=== PATIENT | female | born 1930 | race Caucasian/White ===

== ENCOUNTER 2019-11-17 04:40 | Emergency (ER) | payer MEDICARE, OTHER ==
[~2019-11-17] VITALS: Ht 152.4 cm; Wt 60.0 kg
[2019-11-17 04:40] VITALS: BP 100/60
--- NOTE | 2019-11-17 05:09 | PHYS DOC ---
General Adult EDM: Chief Complaint: GI PROBLEM HPI: HPI: Patient is a 89 year old female is brought by EMS from a half-way with a chief complaint of rectal bleeding. Patient is a DNR CODE STATUS. Patient does not take any blood thinners except aspirin. EMS state that staff told him that they are not sure if patient was having vaginal bleeding or rectal bleeding. Patient has bowel and bladder incontinence and wears a diaper. Patient does have a history of Alzheimer's and dementia. Review of Systems: Review of Systems: Unable to perform review of systems secondary to patient mental status. Heart Score: Risk Factors: Risk Factors: DM, Current or recent (<one month) smoker, HTN, HLP, family history of CAD, obesity. Risk Scores: Score 0 - 3: 2.5% MACE over next 6 weeks - Discharge Home Score 4 - 6: 20.3% MACE over next 6 weeks - Admit for Clinical Observation Score 7 - 10: 72.7% MACE over next 6 weeks - Early Invasive Strategies Physical Exam: PE: Constitutional: Appears cachectic [] HENT: Normocephalic, atraumatic Eyes: EOMI Neck: Normal range of motion, Supple Cardiovascular: Tachycardia Lungs & Thorax: Bilateral rhonchi [] Abdomen: Bowel sounds normal, soft, no tenderness Rectal: Patient has black tarry stool Extremities: No tenderness, ROM intact Neurologic: Alert EKG: EKG: [] Radiology/Procedures: Radiology/Procedures: [] Course & Med Decision Making: Course & Med Decision Making Pertinent Labs and Imaging studies reviewed. (See chart for details) Ordered labs, Hemoccult stool On rectal exam patient does have black tarry stool Patient CARE turned over to Dr Lizarraga at shift change. Usama Disclaimer: Usama Disclaimer: This electronic medical record was generated, in whole or in part, using a voice recognition dictation system. Departure Departure Referrals: LAUREN NAVARRO (PCP) Justicifation of Admission Dx: Justifications for Admission: Justification of Admission Dx: SUSI Hernandez DO Nov 17, 2019 05:09
[2019-11-17 07:13] LABS: BASO % 0 % (0-3); EOS % 0 % (0-3); HEMATOCRIT 44.3 % (36.0-47.0); HEMOGLOBIN 14.6 g/dL (12.0-15.5); LYMPH # 2.2 x10^3/uL (1.0-4.8); LYMPH % 8 % (24-48); MEAN CORPUSCULAR HEMOGLOBIN 31 pg (25-35); MEAN CORPUSCULAR HGB CONC 33 g/dL (31-37); MEAN CORPUSCULAR VOLUME 93 fL (79-100); MONO # 0.7 x10^3/uL (0.0-1.1); MONO % 3 % (0-9); NEUT % 89 % (31-73); PLATELET COUNT 308 x10^3/uL (140-400); RED BLOOD COUNT 4.76 x10^6/uL (3.50-5.40); RED CELL DISTRIBUTION WIDTH 15.3 % (11.5-14.5)
[2019-11-17 07:21] LABS: ALBUMIN 3.2 g/dL (3.4-5.0); ALBUMIN/GLOBULIN RATIO 0.7 (1.0-1.7); CREATININE 4.6 mg/dL (0.6-1.0); TOTAL BILIRUBIN 0.4 mg/dL (0.2-1.0); TOTAL PROTEIN 7.9 g/dL (6.4-8.2)
[2019-11-17 07:25] LABS: CALCIUM 9.8 mg/dL (8.5-10.1)
[2019-11-17 07:28] LABS: FECAL OB PT POSITIVE (NEG)
[2019-11-17 07:33] LABS: POTASSIUM 6.1 mmol/L (3.5-5.1)
--- NOTE | 2019-11-17 07:55 | RAD ---
AP chest x-ray HISTORY: Altered mental status. COMPARISON: Chest x-ray January 01, 2013. FINDINGS: Heart size normal. Tortuosity/ectasia and calcified plaque thoracic aorta is stable to the prior study. Skinfold artifact right apex. Mild right suprahilar calcified granulomas and small left upper lobe calcified granuloma are stable. No pneumothorax, pulmonary opacities or pleural effusions. Bones are unremarkable. IMPRESSION: No acute process. Stable exam. Electronically signed by: Ramin Vargas MD (11/17/2019 7:52 AM) [id number]
[2019-11-17] MEDS ORDERED: IV NORMAL SALINE 1000ML BAG 1,000 ML IV ONE (08:00)
[2019-11-17 08:03] LABS: PROTHROMBIN TIME PATIENT 15.6 SEC (11.7-14.0)
[2019-11-17 09:32] LABS: % BANDS 2 % (0-9); % LYMPHS 27 % (24-48); % SEGS 71 % (35-66); PLT ESTIMATE ADEQUATE (ADEQUATE)
== END 2019-11-17 10:30 | disposition expired ==
LOC: ER 04:40
DX: N93.9 Abnormal uterine and vaginal bleeding, unspecified (principal); K62.5 Hemorrhage of anus and rectum
CPT/HCPCS: 36415; 71045; 80053; 82274; 85007; 85025; 85610; 99285; J7030